=== PATIENT | female | born 1985 | race African-American/Black ===

== ENCOUNTER → 2021-07-30 | Outpatient (CLI) | payer OTHER ==
--- NOTE | 2021-07-30 13:55 | REP ---
INDICATION: LUMP LT BREAST. Lower outer quadrant. Patient reports palpable lump in the 6 o'clock position. COMPARISON: None. TECHNIQUE: Targeted left breast sonography, 5:00 to 7:00. FINDINGS: Heterogeneous fibroglandular background echotexture is seen. No cyst, mass or suspicious acoustic shadowing. IMPRESSION: BI-RADS category 1-findings. Clinical follow-up is advised. <Electronically signed by Jaydon Arnett > 07/30/21 1428
== END ==
LOC: M RAD 13:12
PROVIDERS: ATTEND Physician Assistant
DX: N63.23 Unspecified lump in the left breast, lower outer quadrant (principal)

== ENCOUNTER → 2021-12-18 | Outpatient (REF) | LOC: M PLAIMG 08:56 | PROVIDERS: ATTEND Internal Medicine | DX: M50.30 Other cervical disc degeneration, unspecified cervical region (principal); M48.07 Spinal stenosis, lumbosacral region; R06.02 Shortness of breath; M54.9 Dorsalgia, unspecified ==